=== PATIENT | female | born 1985 | race Caucasian/White ===

== ENCOUNTER 2017-12-18 17:43 | Emergency (ER) | payer MEDICAID ==
[~2017-12-18] VITALS: Ht 157.5 cm; Wt 58.0 kg
[~2017-12-18 17:43] MED LIST: CEPH500C5 PO
[2017-12-18] MEDS ORDERED: KEN0.1O TP (19:15)
[2017-12-18 19:34] VITALS: BP 136/96
== END 2017-12-18 19:35 | disposition home or self-care (01) ==
LOC: ER 17:43
DX: H10.32 Unspecified acute conjunctivitis, left eye (principal); H11.32 Conjunctival hemorrhage, left eye; R21 Rash and other nonspecific skin eruption
CPT/HCPCS: 99283

== ENCOUNTER 2019-01-10 12:22 | Emergency (ER) | payer MEDICAID ==
[~2019-01-10] VITALS: Ht 157.5 cm; Wt 55.9 kg
[2019-01-10 13:03] LABS: BASOPHILS % (AUTO) 0.5 % (0-1); EOSINOPHILS # (AUTO) 0.1 X10'3 (0-0.9); EOSINOPHILS % (AUTO) 1.6 % (0-6); HEMATOCRIT 37.3 % (35.0-45.0); HEMOGLOBIN 12.4 g/dl (12.0-16.0); LYMPHOCYTES # (AUTO) 1.2 X10'3 (1.1-4.8); LYMPHOCYTES % (AUTO) 20.3 % (21-51); MEAN CORPUSCULAR HEMOGLOBIN 28.3 PG (27.0-31.0); MEAN CORPUSCULAR HGB CONC 33.2 g/dL (33.0-36.5); MEAN CORPUSCULAR VOLUME 85.1 FL (78-98); MEAN PLATELET VOLUME 7.5 FL (7.4-10.4); MONOCYTES # (AUTO) 0.6 X10'3 (0-0.9); MONOCYTES % (AUTO) 10.6 % (2-12); PLATELET COUNT 222 X10'3 (140-440); RED BLOOD COUNT 4.39 X10'6 (4.20-5.60); RED CELL DISTRIBUTION WIDTH 14.7 % (11.5-14.5)
[2019-01-10 13:08] LABS: ALANINE AMINOTRANSFERASE 29 U/L (12-78); ALBUMIN 3.4 G/DL (3.4-5.0); ALBUMIN/GLOBULIN RATIO 0.8 (1.1-1.5); ALKALINE PHOSPHATASE 67 IU/L (46-116); ANION GAP 8 (8-16); ASPARTATE AMINO TRANSFERASE 24 U/L (10-37); BILIRUBIN,TOTAL 0.1 MG/DL (0.1-1.0); BLOOD UREA NITROGEN 11 MG/DL (7-18); BUN/CREATININE RATIO 16.2 (6.6-38.0); CALCIUM 8.6 MG/DL (8.5-10.1); CHLORIDE 103 MMOL/L (99-107); CREATININE 0.68 MG/DL (0.40-0.90); GLUCOSE 86 MG/DL (70-104); POTASSIUM 3.2 MMOL/L (3.5-5.1); SODIUM 138 MMOL/L (135-145); TOTAL CARBON DIOXIDE 27.4 MMOL/L (24-32); TOTAL PROTEIN 7.5 G/DL (6.4-8.2); eGFR > 90 ML/MIN
[2019-01-10 13:11] LABS: URINE HCG NEGATIVE (NEG)
[2019-01-10 13:12] LABS: CLARITY,URINE CLOUDY (Clear); COLOR,URINE YELLOW (Yellow); GLUCOSE, URINE NEGATIVE (Neg); KETONES,URINE 15 mg/dl (Neg); LEUKOCYTE ESTERASE ,URINE NEGATIVE (Neg); NITRITES, URINE NEGATIVE (Neg); OCCULT BLOOD,URINE NEGATIVE (Neg); PROTEIN,URINE 100 mg/dl (Neg)
[2019-01-10 13:13] LABS: UA COLLECTION TYPE CLN CATCH MIDSTREAM
[2019-01-10 13:20] LABS: HYALINE CASTS 0-3 /LPF (NEGATIVE); MUCUS STRANDS MODERATE /LPF (Neg); SQUAMOUS EPITHELIAL CELL,UR MODERATE /LPF (FEW)
[2019-01-10 13:21] LABS: BACTERIA,URINE 1+ /HPF (Neg); RBC,URINE 0-2 /HPF (0-2)
[2019-01-10] MEDS ORDERED: cephalexin 250mg capsule PO ONE (13:30)
[2019-01-10] MEDS ORDERED: ondansetron/PF 4mg/2ml inj IV ONE (13:30)
[2019-01-10] MEDS ORDERED: normal saline 1000ML IV soln IVB ONE (13:30)
[2019-01-10] MEDS ORDERED: ONDA4TAB12 PO (14:33)
[2019-01-10] MEDS ORDERED: POTA20TA19 PO (14:33)
[2019-01-10] MEDS ORDERED: CEPH500C5 PO (14:33)
[2019-01-10] MEDS ORDERED: potassium Cl 20 mEq SR tablet PO STA (14:39)
[2019-01-10 14:57] VITALS: BP 128/69
== END 2019-01-10 14:59 | disposition home or self-care (01) ==
LOC: ER 12:23
DX: E86.0 Dehydration (principal); E87.6 Hypokalemia; N39.0 Urinary tract infection, site not specified
CPT/HCPCS: 36415; 80053; 81001; 81025; 85025; 85610; 87088; 96361; 96374; 99283; J2405; J7030

== ENCOUNTER 2019-03-15 11:51 | Emergency (ER) | payer MEDICAID ==
[~2019-03-15] VITALS: Ht 157.5 cm; Wt 54.5 kg
[~2019-03-15 11:51] MED LIST changes: +ONDA4TAB12 PO
[2019-03-15] MEDS ORDERED: epiNEPHrine 1 mg/ml inj IM STA (11:57)
[2019-03-15] MEDS ORDERED: diphenhydrAMINE 50 mg/ml inj IV ONE (12:00)
[2019-03-15] MEDS ORDERED: famotidine/PF 10 mg/ml inj IV ONE (12:00)
[2019-03-15] MEDS ORDERED: methylPREDNISolone sod succ 125mg/2ml vial IV ONE (12:00)
[2019-03-15] MEDS ORDERED: ondansetron/PF 4mg/2ml inj IV ONE (12:30)
[2019-03-15] MEDS ORDERED: PRED20TA PO (12:35)
[2019-03-15] MEDS ORDERED: EPIN0.3P3 INJ (12:54)
[2019-03-15 13:11] VITALS: BP 113/71
== END 2019-03-15 13:08 | disposition home or self-care (01) ==
LOC: ER 11:52
DX: S60.562A Insect bite (nonvenomous) of left hand, initial encounter (principal); T78.2XXA Anaphylactic shock, unspecified, initial encounter; R06.02 Shortness of breath; Z79.899 Other long term (current) drug therapy; W57.XXXA Bitten or stung by nonvenomous insect and other nonvenomous arthropods, initial encounter; Y93.89 Activity, other specified; Y92.89 Other specified places as the place of occurrence of the external cause; Y99.8 Other external cause status
CPT/HCPCS: 96372; 96374; 96375; 99283; J0171; J1200; J2405; J2930; J3490

== ENCOUNTER 2020-05-22 12:21 | Emergency (ER) | payer MEDICAID ==
[~2020-05-22] VITALS: Ht 157.5 cm; Wt 59.9 kg
[~2020-05-22 12:21] MED LIST changes: -CEPH500C5 PO; +EPIN0.3P3 INJ
--- NOTE | 2020-05-22 12:47 | NUR ---
Per Dr. Andersen, does not feel patient meets criteria for isolation.
[2020-05-22] MEDS ORDERED: PRED20TA PO (13:05)
[2020-05-22 13:22] VITALS: BP 126/90
== END 2020-05-22 13:26 | disposition home or self-care (01) ==
LOC: ER 12:22
DX: J40 Bronchitis, not specified as acute or chronic (principal); Z77.22 Contact with and (suspected) exposure to environmental tobacco smoke (acute) (chronic); R05 Cough; R06.02 Shortness of breath; Z79.899 Other long term (current) drug therapy
CPT/HCPCS: 71045; 99283

== ENCOUNTER 2020-07-14 10:46 | Emergency (ER) | payer MEDICAID ==
[~2020-07-14] VITALS: Ht 157.5 cm; Wt 59.0 kg
[2020-07-14 14:41] VITALS: BP 132/94
== END 2020-07-14 14:37 | disposition home or self-care (01) ==
LOC: ER 10:47
DX: S09.90XA Unspecified injury of head, initial encounter (principal); F07.81 Postconcussional syndrome; W55.12XA Struck by horse, initial encounter; Y93.89 Activity, other specified; Y92.89 Other specified places as the place of occurrence of the external cause; Y99.8 Other external cause status; F32.9 Major depressive disorder, single episode, unspecified; Z79.899 Other long term (current) drug therapy
CPT/HCPCS: 70450; 70486; 99285

== ENCOUNTER 2020-09-29 18:07 | Emergency (ER) | payer MEDICAID ==
[~2020-09-29] VITALS: Ht 157.5 cm; Wt 56.8 kg
== END 2020-09-29 19:11 | disposition home or self-care (01) ==
LOC: ER 18:08
DX: R50.9 Fever, unspecified (principal); Z20.822 Contact with and (suspected) exposure to COVID-19; R53.83 Other fatigue; R52 Pain, unspecified; R43.9 Unspecified disturbances of smell and taste; Z79.899 Other long term (current) drug therapy; Z87.81 Personal history of (healed) traumatic fracture
CPT/HCPCS: 36415; 87635; 99283

== ENCOUNTER 2020-12-07 15:41 | Emergency (ER) | payer MEDICAID ==
[~2020-12-07] VITALS: Ht 157.5 cm; Wt 56.8 kg
[2020-12-07 16:08] VITALS: BP 126/90
== END 2020-12-07 17:13 | disposition home or self-care (01) ==
LOC: ER 15:44
DX: B34.9 Viral infection, unspecified (principal); F32.9 Major depressive disorder, single episode, unspecified; Z79.899 Other long term (current) drug therapy
CPT/HCPCS: 99282

== ENCOUNTER 2021-08-21 05:39 | Emergency (ER) | payer MEDICAID ==
[~2021-08-21] VITALS: Ht 157.5 cm; Wt 57.8 kg
[2021-08-21 05:43] VITALS: BP 147/105
--- NOTE | 2021-08-21 06:10 | NUR ---
COVID SWAB COLLECTED AND SENT.
--- NOTE | 2021-08-21 06:52 | NUR ---
lab called pt positive for covid
== END 2021-08-21 15:25 | disposition left against medical advice (07) ==
LOC: ER 05:39
DX: U07.1 COVID-19 (principal); R06.02 Shortness of breath; Z53.21 Procedure and treatment not carried out due to patient leaving prior to being seen by health care provider
CPT/HCPCS: 87635; C9803

== ENCOUNTER 2021-08-21 15:13 | Emergency (ER) | payer MEDICAID ==
[~2021-08-21] VITALS: Ht 157.5 cm; Wt 59.1 kg
[2021-08-21 15:16] VITALS: BP 156/107
== END 2021-08-21 15:54 | disposition home or self-care (01) ==
LOC: ER 15:13
DX: U07.1 COVID-19 (principal); R09.81 Nasal congestion; Z87.81 Personal history of (healed) traumatic fracture; Z79.899 Other long term (current) drug therapy
CPT/HCPCS: 99281; 99282

== ENCOUNTER 2022-10-01 18:45 | Emergency (ER) | payer MEDICAID ==
[~2022-10-01] VITALS: Ht 157.5 cm; Wt 63.7 kg
[2022-10-01 18:48] VITALS: BP 163/108
[2022-10-01 19:16] LABS: CLARITY,URINE CLEAR (Clear); COLOR,URINE YELLOW (Yellow); GLUCOSE, URINE NEGATIVE (Neg); KETONES,URINE NEGATIVE (Neg); LEUKOCYTE ESTERASE ,URINE NEGATIVE (Neg); NITRITES, URINE NEGATIVE (Neg); OCCULT BLOOD,URINE LARGE (Neg); PH,URINE 5.5 (4.8-8.0); PROTEIN,URINE NEGATIVE (Neg); UROBILINOGEN,URINE 0.2 E.U/dL (0.2-1.0)
[2022-10-01 19:22] LABS: URINE HCG NEGATIVE (NEG)
[2022-10-01 19:23] LABS: UA COLLECTION TYPE CLN CATCH MIDSTREAM
[2022-10-01 19:25] LABS: WBC,URINE 0-4 /HPF (0-4)
[2022-10-01 19:26] LABS: BACTERIA,URINE FEW /HPF (Neg); SQUAMOUS EPITHELIAL CELL,UR NONE SEEN /LPF (FEW)
[2022-10-01 19:34] LABS: BASOPHILS % (AUTO) 0 % (0-1); EOSINOPHILS % (AUTO) 0.9 % (0-6); HEMATOCRIT 29.8 % (35.0-45.0); HEMOGLOBIN 9.6 g/dl (12.0-16.0); LYMPHOCYTES # (AUTO) 1.8 X10'3 (1.1-4.8); LYMPHOCYTES % (AUTO) 40.3 % (21-51); MEAN CORPUSCULAR HEMOGLOBIN 26.6 PG (27.0-31.0); MEAN CORPUSCULAR HGB CONC 32.3 g/dL (33.0-36.5); MEAN CORPUSCULAR VOLUME 82.4 FL (78-98); MEAN PLATELET VOLUME 7.2 FL (7.4-10.4); MONOCYTES # (AUTO) 0.7 X10'3 (0-0.9); MONOCYTES % (AUTO) 14.7 % (2-12); NEUTROPHILS % (AUTO) 44.1 % (42-75); PLATELET COUNT 240 X10'3 (140-440); RED BLOOD COUNT 3.61 X10'6 (4.20-5.60); RED CELL DISTRIBUTION WIDTH 15.8 % (11.5-14.5); WHITE BLOOD COUNT 4.5 X10'3 (4.5-11.0)
[2022-10-01 19:47] LABS: ALANINE AMINOTRANSFERASE 23 U/L (12-78); ALBUMIN 3.7 G/DL (3.4-5.0); ALBUMIN/GLOBULIN RATIO 1.2 (1.1-1.5); ALKALINE PHOSPHATASE 59 IU/L (46-116); ANION GAP 7 (8-16); ASPARTATE AMINO TRANSFERASE 26 U/L (10-37); BILIRUBIN,TOTAL 0.1 MG/DL (0.1-1.0); BLOOD UREA NITROGEN 4 MG/DL (7-18); BUN/CREATININE RATIO 6.5 (6.6-38.0); CALCIUM 8.4 MG/DL (8.5-10.1); CHLORIDE 107 MMOL/L (99-107); CREATININE 0.62 MG/DL (0.40-0.90); GLUCOSE 100 MG/DL (70-104); LIPASE 207 U/L (73-393); POTASSIUM 3.5 MMOL/L (3.5-5.1); SODIUM 140 MMOL/L (135-145); TOTAL CARBON DIOXIDE 25.9 MMOL/L (24-32); TOTAL PROTEIN 6.9 G/DL (6.4-8.2); eGFR > 90 ML/MIN
== END 2022-10-01 21:28 | disposition left against medical advice (07) ==
LOC: ER 18:45
DX: R10.9 Unspecified abdominal pain (principal); R19.7 Diarrhea, unspecified; Z53.21 Procedure and treatment not carried out due to patient leaving prior to being seen by health care provider
CPT/HCPCS: 36415; 80053; 81001; 81025; 83690; 85025; A6449

== ENCOUNTER 2023-02-13 08:05 | Emergency (ER) | payer MEDICAID ==
[~2023-02-13] VITALS: Ht 157.5 cm; Wt 59.1 kg
[2023-02-13 08:09] VITALS: BP 152/103
[2023-02-13] MEDS ORDERED: ondansetron 4mg rapidly disintigrating tab PO ONE (08:55)
[2023-02-13] MEDS ORDERED: ONDA4TAB12 PO (09:03)
--- NOTE | 2023-02-13 09:39 | NUR ---
PT ASSESSED AND DISCHARGED BY [facility]ALK[facility].
== END 2023-02-13 09:16 | disposition home or self-care (01) ==
LOC: ER 08:06
DX: S50.01XA Contusion of right elbow, initial encounter (principal); R11.0 Nausea; Z87.81 Personal history of (healed) traumatic fracture; Z79.899 Other long term (current) drug therapy; W01.0XXA Fall on same level from slipping, tripping and stumbling without subsequent striking against object, initial encounter; Y93.89 Activity, other specified; Y92.89 Other specified places as the place of occurrence of the external cause; Y99.8 Other external cause status
CPT/HCPCS: 73080; 73110; 99284; A4565

== ENCOUNTER 2023-04-17 12:24 | Emergency (ER) | payer MEDICAID ==
[~2023-04-17] VITALS: Ht 157.5 cm; Wt 56.8 kg
[2023-04-17 12:30] VITALS: BP 156/111; PULSE 98; RESP 14; TEMP 96.9; O2SAT 100
[2023-04-17 12:49] LABS: BASOPHILS % (AUTO) 0.1 % (0-1); EOSINOPHILS % (AUTO) 0.1 % (0-6); HEMATOCRIT 37.2 % (35.0-45.0); HEMOGLOBIN 11.9 g/dl (12.0-16.0); LYMPHOCYTES # (AUTO) 1.7 X10'3 (1.1-4.8); LYMPHOCYTES % (AUTO) 33.5 % (21-51); MEAN CORPUSCULAR HEMOGLOBIN 26.1 PG (27.0-31.0); MEAN CORPUSCULAR HGB CONC 32.1 g/dL (33.0-36.5); MEAN CORPUSCULAR VOLUME 81.3 FL (78-98); MEAN PLATELET VOLUME 7.4 FL (7.4-10.4); MONOCYTES # (AUTO) 0.5 X10'3 (0-0.9); MONOCYTES % (AUTO) 10.8 % (2-12); NEUTROPHILS # (AUTO) 2.7 X10'3 (1.8-7.7); NEUTROPHILS % (AUTO) 55.5 % (42-75); PLATELET COUNT 266 X10'3 (140-440); RED BLOOD COUNT 4.58 X10'6 (4.20-5.60); RED CELL DISTRIBUTION WIDTH 16.6 % (11.5-14.5); WHITE BLOOD COUNT 4.9 X10'3 (4.5-11.0)
[2023-04-17 13:09] LABS: ALANINE AMINOTRANSFERASE 16 U/L (12-78); ALBUMIN 3.8 G/DL (3.4-5.0); ALBUMIN/GLOBULIN RATIO 1.1 (1.1-1.5); ALKALINE PHOSPHATASE 60 IU/L (46-116); ANION GAP 9 (8-16); ASPARTATE AMINO TRANSFERASE 18 U/L (10-37); BILIRUBIN,TOTAL 0.2 MG/DL (0.1-1.0); BLOOD UREA NITROGEN 13 MG/DL (7-18); BUN/CREATININE RATIO 17.6 (10.0-20.0); CALCIUM 8.6 MG/DL (8.5-10.1); CHLORIDE 106 MMOL/L (99-107); CREATININE 0.74 MG/DL (0.40-0.90); GLUCOSE 102 MG/DL (70-104); SODIUM 140 MMOL/L (135-145); TOTAL CARBON DIOXIDE 25.1 MMOL/L (24-32); TOTAL PROTEIN 7.2 G/DL (6.4-8.2); eCRCL 81 ML/MIN; eGFR 87 ML/MIN
[2023-04-17 13:17] LABS: PRO BRAIN NATRIURETIC PEPTIDE 88 PG/ML (0-125)
--- NOTE | 2023-04-17 16:01 | NUR ---
NIL [id number]
== END 2023-04-17 17:03 | disposition left against medical advice (07) ==
LOC: ER 12:24
DX: R07.9 Chest pain, unspecified (principal); Z53.21 Procedure and treatment not carried out due to patient leaving prior to being seen by health care provider
CPT/HCPCS: 36415; 80053; 83880; 84484; 85025; 93005; 99281

== ENCOUNTER 2023-08-31 12:08 | Emergency (ER) | payer MEDICAID | END 2023-08-31 13:24 | disposition left against medical advice (07) | LOC: ER 12:08 | DX: R07.81 Pleurodynia (principal); Z53.21 Procedure and treatment not carried out due to patient leaving prior to being seen by health care provider ==

== ENCOUNTER 2024-01-02 09:11 | Emergency (ER) | payer MEDICAID ==
[~2024-01-02] VITALS: Ht 157.5 cm; Wt 67.5 kg
[2024-01-02] MEDS: ketorolac trometh. 30mg/ml inj. IV ONE (09:25)
[2024-01-02] MEDS: normal saline 1000ML IV soln IVB ONE (09:39)
[2024-01-02] MEDS: dexamethasone 4mg/ml inj IV SCH (09:40)
[2024-01-02] MEDS: diphenhydrAMINE 50 mg/ml inj IV ONE (09:43)
[2024-01-02] MEDS: proCHLORperazine 10 MG/2 ml inj IV ONE (09:44)
[2024-01-02 10:36] VITALS: BP 163/118; PULSE 94; RESP 14; TEMP 98.3; O2SAT 97
== END 2024-01-02 10:50 | disposition home or self-care (01) ==
LOC: ER 09:11
DX: G43.909 Migraine, unspecified, not intractable, without status migrainosus (principal); F32.A Depression, unspecified
CPT/HCPCS: 96361; 96374; 96375; 99284; J0780; J1100; J1200; J7030

== ENCOUNTER 2024-10-12 05:45 | Emergency (ER) | payer BC, MEDICAID ==
[~2024-10-12] VITALS: Ht 157.5 cm; Wt 63.2 kg
[~2024-10-12 05:45] MED LIST changes: +ONDA-243 PO; -ONDA4TAB12 PO
[2024-10-12 05:46] VITALS: BP 156/11; PULSE 80; RESP 16; TEMP 96.3; O2SAT 99
[2024-10-12] MEDS: ondansetron 4mg rapidly disintigrating tab PO ONE (05:57)
[2024-10-12] MEDS ORDERED: ONDA-243 PO (06:02)
[2024-10-12] MEDS: bismuth subsalicylate 262mg/15ml oral suspension PO SCH (06:10)
== END 2024-10-12 06:16 | disposition home or self-care (01) ==
LOC: ER 05:46
DX: R11.0 Nausea (principal); T50.995A Adverse effect of other drugs, medicaments and biological substances, initial encounter; F32.A Depression, unspecified; Y92.89 Other specified places as the place of occurrence of the external cause
CPT/HCPCS: 99283

== ENCOUNTER 2024-10-26 18:36 | Emergency (ER) | payer BC ==
[~2024-10-26] VITALS: Ht 157.5 cm; Wt 59.5 kg
[2024-10-26 18:39] VITALS: BP 159/108; PULSE 91; O2SAT 97
[2024-10-26] MEDS ORDERED: RIME75TA PO (19:31)
[2024-10-26 19:50] VITALS: RESP 16
[2024-10-26] MEDS: ketorolac trometh 15mg/ml vial 15 MG/ML ML IM ONE (19:50)
[2024-10-26] MEDS: dexamethasone sod phosphate 10mg/ml inj PO STA (19:50)
[2024-10-26] MEDS: diphenhydrAMINE 25mg capsule PO ONE (19:50)
[2024-10-26] MEDS: proCHLORperazine 10mg tablet PO ONE (19:51)
[2024-10-26 19:55] VITALS: TEMP 98.1
== END 2024-10-26 19:59 | disposition home or self-care (01) ==
LOC: ER 18:37
DX: G43.909 Migraine, unspecified, not intractable, without status migrainosus (principal); F32.A Depression, unspecified
CPT/HCPCS: 96372; 99284; J1100; J1885; Q0163; Q0164